=== PATIENT | male | born 1960 | race Two or more races ===

== ENCOUNTER 2016-11-17 13:50 | Emergency (ER) | payer MEDICAID ==
[~2016-11-17] VITALS: Ht 172.7 cm; Wt 99.8 kg
[~2016-11-17 13:50] MED LIST: ATEN25TA PO; ATOR10TA GT; METF500T4 PO
[2016-11-17 13:53] VITALS: BP 135/81
--- NOTE | 2016-11-17 14:09 | NUR ---
SPOKE WITH [facility] FOR TRANSPORT, ETA 60 MIN PER US.
--- NOTE | 2016-11-17 14:24 | NUR ---
CALLED [facility]
--- NOTE | 2016-11-17 14:24 | NUR ---
SEEN AND EVALUATED BY DR BRIONES. DENIES CHEST PAIN OR SOB AT THIS TIME. ASK FOR SANDWICH AND A TAXI VOUCHER SO HE CAN GO BACK TO HIS APARTMENT. VSS. D/C IN STABLE CONDITION.
== END 2016-11-17 14:30 | disposition home or self-care (01) ==
LOC: ER 13:54
DX: F41.9 Anxiety disorder, unspecified (principal); E11.9 Type 2 diabetes mellitus without complications; I10 Essential (primary) hypertension; J45.909 Unspecified asthma, uncomplicated; F17.200 Nicotine dependence, unspecified, uncomplicated; Z95.811 Presence of heart assist device
CPT/HCPCS: 99284; A4606; Z7610